=== PATIENT | male | born 1975 | race Caucasian/White ===

== ENCOUNTER 2020-05-18 11:50 | Day surgery (SDC) | payer BC ==
[2020-05-17 13:10] VITALS: BMI 25.8
[2020-05-18] MEDS ORDERED: ACETAMINOPHEN 325 MG TABLET (FP) PO PRN (12:49)
[2020-05-18] MEDS ORDERED: ONDANSETRON 4 MG/2 ML VIAL IVPUSH PRN (12:49)
[2020-05-18] MEDS ORDERED: oxyCODONE HCL 5 MG TABLET PO PRN ×2 (12:49)
[2020-05-18] MEDS ORDERED: LACTATED RINGERS SOLUTION 1,000 ML IV SCH (13:00)
[2020-05-18] MEDS ORDERED: LIDOCAINE HCL 1%, 10 MG/ML (20ML VIAL) ID ONE ×3 (13:15→14:15)
[2020-05-18] MEDS ORDERED: BUPIVACAINE HCL/PF 0.5% (5 MG/ML) 30 ML VIAL IJ ONE ×3 (13:16→14:15)
--- NOTE | 2020-05-18 13:33 | HP ---
History & Physical Update - History History: No Change - Physical Physical: No Change - Assessment Assessment: No Change - Plan Plan: No Change
[2020-05-18] MEDS ORDERED: ACETAMINOPHEN 1000 MG/100 ML VIAL (NON FORMULARY) IVPB ONE (13:34)
[2020-05-18] MEDS ORDERED: DEXTROSE 5%-0.45% SALINE 1,000 ML IV SCH (13:45)
[2020-05-18] MEDS ORDERED: IBUPROFEN 800 MG/8 ML IJ IVPB SCH (13:45)
[2020-05-18] MEDS ORDERED: ceFAZolin SODIUM 1 GM VIAL IVPB ONE (14:05)
[2020-05-18 15:55] VITALS: TEMP 98.2
[2020-05-18 16:57] VITALS: BP 110/70; PULSE 50
--- NOTE | 2020-05-18 18:21 | OP ---
DATE OF OPERATION: 05/18/2020 SURGEON: Jose Croft MD. PREOPERATIVE DIAGNOSIS: Left spermatocele. POSTOPERATIVE DIAGNOSIS: Left spermatocele. PROCEDURE: Scrotal exploration, left spermatocelectomy. SPECIMEN: Portion of spermatocele wall. ESTIMATED BLOOD LOSS: Minimal. DRAINS: None. PREOPERATIVE INDICATION: The patient is a 45-year-old male who in the past had undergone a bilateral vasectomy. Since then he has developed tense fluid and a tense mass in his scrotum, which on ultrasound appeared to be cystic, consistent with a spermatocele. It is larger than his testicle and is creating a lot of discomfort. He comes to the OR today for excision of this spermatocele. DESCRIPTION OF PROCEDURE: The patient was brought to the OR, placed on the table in the supine position. Given general anesthesia and IV antibiotics. The groin was prepped and draped sterilely. Timeout was performed. Injection of a combination of Marcaine and lidocaine were injected to the skin at the left hemiscrotum. A transverse incision was then made in the left hemiscrotum, and the underlying tissues were dissected. The tense fluid-filled structure consistent with spermatocele was then identified. This was opened, and a large amount of fluid was suctioned out. It was straw colored. The testicle and the cyst wall were delivered through incision. The cyst wall was excised, and the remaining portions were oversewn in an imbricated fashion, consistent with technique. Good hemostasis was maintained throughout. Testicle otherwise appeared to be normal. Testicle was reintroduced back into the scrotum. The scrotum was closed in 2 layers using 2-0 Vicryl suture and 3-0 chromic suture. Wound was dressed. Patient was woken up. JOSE CROFT M.D. [id number]
--- NOTE | 2020-05-24 17:22 | PATH ---
Surgical Pathology Report Patient Name: MANDO THOMPSON [facility]. Rec. #: [id number] /Age/Gender: 1975 (Age: 45) / M Account: [id number] Location: [facility] SURGICAL Taken: 05/18/2020 Received: 05/22/2020 Reported: 05/24/2020 Physicians: Jose Croft M.D. Specimen(s) Received LEFT SPERMATOCELE Clinical History Left spermatocele Final Diagnosis LEFT SPERMATOCELE, EXCISION: CYST WITH FIBROMUSCULAR WALL LINED BY BENIGN CUBOIDAL FOCALLY CILIATED EPITHELIUM, CONSISTENT WITH SPERMATOCELE. Electronically Signed Nicole Pate M.D. Gross Description Received in formalin labeled "left spermatocele," are 2 núñ[address] limon portion of fibrous tissue measuring 3.8 x 1.8 x 0.2 cm and 4.5 x 1.5 x 0.1 cm, consistent with portions of a spermatocele. [employer] Systems Technician sections are submitted in one cassette. /05/22/2020 [facility]05/22/2020
== END 2020-05-18 17:10 | disposition home or self-care (01) ==
LOC: JASU-SURG 11:50
PROVIDERS: ATTEND Urology
PROC: 0VBK0ZZ Excision of Left Epididymis, Open Approach (ICD-10-PCS; principal; 2020-05-18 14:00)
DX: N43.41 Spermatocele of epididymis, single (principal)
CPT/HCPCS: 88304-TC; 94760